=== PATIENT | female | born 1935 | race African-American/Black ===

== ENCOUNTER 2017-08-07 20:50 | Inpatient (IN) | payer MEDICARE, BC ==
[~2017-08-07] VITALS: Ht 167.6 cm; Wt 82.4 kg
[2017-08-07 20:50] VITALS: BP 107/62
[~2017-08-07 20:50] MED LIST: AMIODIPINE BESYLATE PO; ASPIRIN PO; CHOL100053 PO; FISH1CAP38 PO; FOLIC ACID PO; FOSI40TA2 PO; FURO40TA5 PO; ISOS60TA4 PO; LANS30CA55 PO; LEVO88TA2 PO; LUTE20TA PO; METO100T16 PO; POTA10TA11 PO; VYT1040 PO; WARF3TAB58 PO; [UNRECOGNIZED DRUG - OTHER] PO
[2017-08-07 21:45] VITALS: BP 107/62
[2017-08-07] MEDS ORDERED: DIPHENHYDRAMINE 25MG CAPSULE PO PRN (21:45)
[2017-08-07] MEDS ORDERED: MAGNESIUM/ALUMINUM HYDROXIDE/SIMETHICONE 30ML UDC PO PRN (21:45)
[2017-08-07] MEDS ORDERED: CLONIDINE 0.1MG TABLET PO PRN (21:45)
[2017-08-07] MEDS ORDERED: ONDANSETRON HCL 4MG TABLET PO PRN (21:45)
[2017-08-07] MEDS ORDERED: LACTULOSE 20G/30ML UDC PO PRN (21:45)
[2017-08-07] MEDS: SODIUM CHLORIDE 0.9% INJ 3ML FLUSH IVF SCH (23:01)
[2017-08-08] MEDS: SODIUM CHLORIDE 0.9% INJ 3ML FLUSH IVF SCH ×3 (06:37→22:14)
[2017-08-08] MEDS: LEVOTHYROXINE SODIUM 137MCG TABLET PO SCH (06:37)
[2017-08-08 07:16] LABS: BASOPHILS % 1.8 % (0.0-2.0); EOSINOPHILS % 1.7 % (0.0-5.0); HEMATOCRIT. 30.8 % (36.0-48.0); HEMOGLOBIN. 10.4 g/dL (12.0-16.0); LYMPHOCYTES % 34.7 % (20.0-50.0); MEAN CORPUSCULAR HEMOGLOBIN 29.2 pg (28.0-32.0); MEAN CORPUSCULAR VOLUME 86.7 fL (81.0-99.0); MEAN PLATELET VOLUME 9.7 fl (7.4-10.4); NEUTROPHILS % 50.8 % (40.0-76.0); PLATELET 217 x1000/uL (130-400); RED BLOOD CELL COUNT 3.55 mill/uL (4.2-5.4); RED CELL DISTRIBUTION WIDTH 24.2 % (11.6-14.6)
[2017-08-08 07:43] LABS: CHLORIDE 105 mEq/L (98-107)
[2017-08-08 07:54] LABS: PREALBUMIN 17.1 mg/dL (20.0-40.0)
[2017-08-08 08:00] VITALS: BP 119/64
[2017-08-08] MEDS: CARVEDILOL 6.25 MG TABLET PO SCH ×2 (09:00→21:00)
[2017-08-08] MEDS: ASPIRIN 81MG EC TABLET PO SCH (09:48)
[2017-08-08] MEDS: FERROUS SULFATE 325MG TABLET PO SCH ×2 (09:48→16:13)
[2017-08-08] MEDS: FUROSEMIDE 40MG TABLET PO SCH (09:49)
[2017-08-08] MEDS: FAMOTIDINE 20MG TABLET PO SCH (09:49)
[2017-08-08] MEDS: AMIODARONE HCL 200 MG TABLET PO SCH (09:49)
[2017-08-08] MEDS: SPIRONOLACTONE 25MG TABLET PO SCH (09:50)
[2017-08-08] MEDS: APIXABAN 2.5 MG TABLET PO SCH ×2 (09:50→22:14)
[2017-08-08] MEDS: MULTIVITAMINS,THER W-MINERALS TABLET PO SCH (09:51)
[2017-08-08] MEDS ORDERED: POTASSIUM CHLORIDE 20MEQ TABLET SR PO NR (10:45)
[2017-08-08] MEDS: FOLIC ACID 0.4MG TABLET PO SCH (11:30)
[2017-08-08] MEDS: LACTULOSE 20G/30ML UDC PO SCH ×3 (14:00→22:14)
[2017-08-08] MEDS: DOCUSATE SODIUM 100MG CAPSULE PO SCH (16:13)
[2017-08-08 20:00] VITALS: BP 107/64
[2017-08-08] MEDS: POLYETHYLENE GLYCOL 3350 (17GM) 1 DOSE PACK PO SCH (22:14)
[2017-08-09 04:53] LABS: CLARITY URINE CLEAR (CLEAR); COLOR URINE YELLOW (YELLOW); KETONES URINE NEGATIVE (NEGATIVE); LEUKOCYTE ESTERASE URINE TRACE (NEGATIVE); NITRITE URINE NEGATIVE (NEGATIVE); OCCULT BLOOD URINE 2+ (NEGATIVE); PROTEIN URINE NEGATIVE (NEGATIVE); SPECIFIC GRAVITY URINE 1.015 (1.005-1.030); UROBILINOGEN URINE 0.2 E.U./dL (0.2-1.0)
[2017-08-09] MEDS: SODIUM CHLORIDE 0.9% INJ 3ML FLUSH IVF SCH ×3 (06:12→21:18)
[2017-08-09] MEDS: LEVOTHYROXINE SODIUM 137MCG TABLET PO SCH (06:12)
[2017-08-09 07:28] LABS: AMMONIA 114 uMol/L (<32)
[2017-08-09 08:13] VITALS: BP 111/60
[2017-08-09] MEDS: FERROUS SULFATE 325MG TABLET PO SCH ×2 (08:56→17:06)
[2017-08-09] MEDS: ERGOCALCIFEROL 50000UNITS CAPSULE PO SCH (08:57)
[2017-08-09] MEDS: FOLIC ACID 0.4MG TABLET PO SCH (08:57)
[2017-08-09] MEDS: ASPIRIN 81MG EC TABLET PO SCH (08:57)
[2017-08-09] MEDS: DOCUSATE SODIUM 100MG CAPSULE PO SCH ×2 (08:57→17:06)
[2017-08-09] MEDS: AMIODARONE HCL 200 MG TABLET PO SCH (08:57)
[2017-08-09] MEDS: SPIRONOLACTONE 25MG TABLET PO SCH (08:57)
[2017-08-09] MEDS: MULTIVITAMINS,THER W-MINERALS TABLET PO SCH (08:57)
[2017-08-09] MEDS: FAMOTIDINE 20MG TABLET PO SCH (08:57)
[2017-08-09] MEDS: APIXABAN 2.5 MG TABLET PO SCH ×2 (08:57→21:18)
[2017-08-09] MEDS: CARVEDILOL 6.25 MG TABLET PO SCH ×2 (09:00→21:17)
[2017-08-09 12:33] LABS: PHOSPHORUS 2.4 mg/dL (2.5-4.9)
[2017-08-09] MEDS ORDERED: POTASSIUM-SODIUM PHOSPHATE POWDER PACKET PO NR (14:00)
[2017-08-09 15:16] LABS: HEPATITIS B SURFACE ANTIGEN NEGATIVE
[2017-08-09] MEDS: LACTULOSE 20G/30ML UDC PO SCH ×2 (15:32→21:18)
[2017-08-09 15:44] LABS: HEPATITIS B CORE AB IGM NEGATIVE
[2017-08-09 15:45] LABS: HEPATITIS A AB IGM NEGATIVE (NEGATIVE)
[2017-08-09] MEDS: RIFAXIMIN 550 MG TABLET PO SCH ×2 (16:59→21:17)
[2017-08-09 20:00] VITALS: BP 120/63
[2017-08-09] MEDS: POLYETHYLENE GLYCOL 3350 (17GM) 1 DOSE PACK PO SCH (21:17)
[2017-08-10] MEDS: LACTULOSE 20G/30ML UDC PO SCH ×3 (05:51→22:55)
[2017-08-10] MEDS: LEVOTHYROXINE SODIUM 137MCG TABLET PO SCH (05:52)
[2017-08-10] MEDS: SODIUM CHLORIDE 0.9% INJ 3ML FLUSH IVF SCH (06:00)
[2017-08-10 06:39] LABS: AMMONIA 55 uMol/L (<32); INR 1.3; PARTIAL THROMBOPLASTIN TIME 35.5 sec (23.4-31.0); PROTHROMBIN TIME 13.7 sec (9.4-11.6)
[2017-08-10 06:50] LABS: BASOPHILS % 1.8 % (0.0-2.0); EOSINOPHILS % 1.2 % (0.0-5.0); HEMOGLOBIN. 10.2 g/dL (12.0-16.0); LYMPHOCYTES % 32.2 % (20.0-50.0); MEAN CORPUSCULAR HEMOGLOBIN 28.5 pg (28.0-32.0); MEAN CORPUSCULAR VOLUME 86.6 fL (81.0-99.0); MEAN PLATELET VOLUME 9.6 fl (7.4-10.4); MONOCYTES % 9.4 % (2.0-8.0); NEUTROPHILS % 55.4 % (40.0-76.0); PLATELET 236 x1000/uL (130-400); RED BLOOD CELL COUNT 3.59 mill/uL (4.2-5.4); RED CELL DISTRIBUTION WIDTH 24.4 % (11.6-14.6)
[2017-08-10 06:51] LABS: CHLORIDE 108 mEq/L (98-107)
[2017-08-10 06:55] LABS: GAMMA GLUTAMYL TRANSPEPTIDASE 231 IU/L (7-32)
[2017-08-10 06:57] LABS: LDL CHOLESTEROL 55 mg/dL (5-100); PHOSPHORUS 2.4 mg/dL (2.5-4.9)
[2017-08-10 07:00] LABS: CREATINE KINASE 47 IU/L (26-192); HDL CHOLESTEROL 43 mg/dL (40-59)
[2017-08-10 07:07] LABS: TOTAL IRON BINDING CAPACITY 325 ug/dL (250-450)
[2017-08-10 07:26] LABS: VITAMIN B12 SERUM 1449 pg/mL (211-911)
[2017-08-10 07:30] LABS: FOLIC ACID (FOLATE) SERUM > 20.00 ng/mL (>5.38)
[2017-08-10 08:25] VITALS: BP 101/58
[2017-08-10] MEDS: CARVEDILOL 6.25 MG TABLET PO SCH ×2 (09:00→21:00)
[2017-08-10] MEDS: APIXABAN 2.5 MG TABLET PO SCH ×2 (09:19→22:55)
[2017-08-10] MEDS: MULTIVITAMINS,THER W-MINERALS TABLET PO SCH (09:19)
[2017-08-10] MEDS: ASPIRIN 81MG EC TABLET PO SCH (09:19)
[2017-08-10] MEDS: FAMOTIDINE 20MG TABLET PO SCH (09:19)
[2017-08-10] MEDS: FOLIC ACID 0.4MG TABLET PO SCH (09:19)
[2017-08-10] MEDS: DOCUSATE SODIUM 100MG CAPSULE PO SCH ×2 (09:19→17:20)
[2017-08-10] MEDS: FUROSEMIDE 40MG TABLET PO SCH (09:19)
[2017-08-10] MEDS: FERROUS SULFATE 325MG TABLET PO SCH ×2 (09:19→17:20)
[2017-08-10] MEDS: RIFAXIMIN 550 MG TABLET PO SCH ×2 (09:19→22:55)
[2017-08-10] MEDS: AMIODARONE HCL 200 MG TABLET PO SCH (09:19)
[2017-08-10] MEDS: SPIRONOLACTONE 25MG TABLET PO SCH (09:20)
[2017-08-10 11:41] LABS: FERRITIN 86 ng/mL (10-291)
[2017-08-10] MEDS ORDERED: POTASSIUM CHLORIDE 20MEQ TABLET SR PO SCH (12:00)
[2017-08-10 20:00] VITALS: BP 108/60
[2017-08-10] MEDS: POLYETHYLENE GLYCOL 3350 (17GM) 1 DOSE PACK PO SCH (22:55)
[2017-08-11] MEDS: ACETAMINOPHEN 325MG TABLET PO PRN (02:58)
[2017-08-11] MEDS: LACTULOSE 20G/30ML UDC PO SCH ×3 (05:38→22:27)
[2017-08-11] MEDS: LEVOTHYROXINE SODIUM 137MCG TABLET PO SCH (05:38)
[2017-08-11 07:32] LABS: T4 FREE 1.41 ng/dL (0.76-1.46)
[2017-08-11 07:34] LABS: AMMONIA 51 uMol/L (<32)
[2017-08-11 08:00] VITALS: BP 104/60
[2017-08-11] MEDS: RIFAXIMIN 550 MG TABLET PO SCH ×2 (08:59→22:22)
[2017-08-11] MEDS: DOCUSATE SODIUM 100MG CAPSULE PO SCH ×2 (08:59→17:34)
[2017-08-11] MEDS: APIXABAN 2.5 MG TABLET PO SCH ×2 (09:00→22:24)
[2017-08-11] MEDS: CARVEDILOL 6.25 MG TABLET PO SCH ×2 (09:00→21:00)
[2017-08-11] MEDS: FERROUS SULFATE 325MG TABLET PO SCH ×2 (09:00→17:34)
[2017-08-11] MEDS: FAMOTIDINE 20MG TABLET PO SCH (09:00)
[2017-08-11] MEDS: AMIODARONE HCL 200 MG TABLET PO SCH (09:00)
[2017-08-11] MEDS: ASPIRIN 81MG EC TABLET PO SCH (09:00)
[2017-08-11] MEDS: FOLIC ACID 0.4MG TABLET PO SCH (09:01)
[2017-08-11] MEDS: MULTIVITAMINS,THER W-MINERALS TABLET PO SCH (09:01)
[2017-08-11] MEDS: SPIRONOLACTONE 25MG TABLET PO SCH (09:01)
[2017-08-11 20:00] VITALS: BP 103/54
[2017-08-11] MEDS: POLYETHYLENE GLYCOL 3350 (17GM) 1 DOSE PACK PO SCH (22:27)
[2017-08-12] MEDS: LACTULOSE 20G/30ML UDC PO SCH ×3 (06:13→21:32)
[2017-08-12] MEDS: LEVOTHYROXINE SODIUM 137MCG TABLET PO SCH (06:25)
[2017-08-12 06:37] LABS: AMMONIA 48 uMol/L (<32)
[2017-08-12 08:00] VITALS: BP 104/65
[2017-08-12] MEDS: CARVEDILOL 6.25 MG TABLET PO SCH ×2 (09:00→21:33)
[2017-08-12] MEDS: RIFAXIMIN 550 MG TABLET PO SCH ×2 (09:49→21:32)
[2017-08-12] MEDS: FERROUS SULFATE 325MG TABLET PO SCH ×2 (09:49→18:33)
[2017-08-12] MEDS: DOCUSATE SODIUM 100MG CAPSULE PO SCH (09:49)
[2017-08-12] MEDS: ASPIRIN 81MG EC TABLET PO SCH (09:50)
[2017-08-12] MEDS: AMIODARONE HCL 200 MG TABLET PO SCH (09:50)
[2017-08-12] MEDS: FUROSEMIDE 40MG TABLET PO SCH (09:50)
[2017-08-12] MEDS: FOLIC ACID 0.4MG TABLET PO SCH (09:50)
[2017-08-12] MEDS: APIXABAN 2.5 MG TABLET PO SCH ×2 (09:50→21:32)
[2017-08-12] MEDS: MULTIVITAMINS,THER W-MINERALS TABLET PO SCH (09:50)
[2017-08-12] MEDS: FAMOTIDINE 20MG TABLET PO SCH (09:50)
[2017-08-12] MEDS: SPIRONOLACTONE 25MG TABLET PO SCH (09:59)
[2017-08-12 12:21] LABS: HEMATOCRIT 31.2 % (36.0-48.0); HEMOGLOBIN 10.4 g/dL (12.0-16.0)
[2017-08-12] MEDS ORDERED: MAGNESIUM HYDROXIDE 400MG/5ML 30ML UDC PO PRN (18:30)
[2017-08-12] MEDS ORDERED: BISACODYL 10MG SUPP PR SCH (18:30)
[2017-08-12] MEDS: ACETAMINOPHEN 325MG TABLET PO PRN (18:32)
[2017-08-12 20:00] VITALS: BP 109/73
[2017-08-12] MEDS: POLYETHYLENE GLYCOL 3350 (17GM) 1 DOSE PACK PO SCH (21:32)
[2017-08-13] MEDS: LACTULOSE 20G/30ML UDC PO SCH ×2 (06:14→20:02)
[2017-08-13] MEDS: LEVOTHYROXINE SODIUM 137MCG TABLET PO SCH (06:14)
[2017-08-13 06:28] LABS: BASOPHILS % 1.1 % (0.0-2.0); EOSINOPHILS % 1.7 % (0.0-5.0); HEMATOCRIT. 30.9 % (36.0-48.0); HEMOGLOBIN. 10.3 g/dL (12.0-16.0); LYMPHOCYTES % 41.9 % (20.0-50.0); MEAN CORPUSCULAR HEMOGLOBIN 29.3 pg (28.0-32.0); MEAN CORPUSCULAR VOLUME 87.7 fL (81.0-99.0); MEAN PLATELET VOLUME 9.7 fl (7.4-10.4); NEUTROPHILS % 44.3 % (40.0-76.0); PLATELET 246 x1000/uL (130-400); RED BLOOD CELL COUNT 3.52 mill/uL (4.2-5.4); RED CELL DISTRIBUTION WIDTH 25.4 % (11.6-14.6)
[2017-08-13 07:09] LABS: CHLORIDE 106 mEq/L (98-107)
[2017-08-13 07:32] LABS: AMMONIA 64 uMol/L (<32)
[2017-08-13 08:20] VITALS: BP 107/67
[2017-08-13] MEDS: CARVEDILOL 6.25 MG TABLET PO SCH ×2 (09:00→21:55)
[2017-08-13] MEDS: FERROUS SULFATE 325MG TABLET PO SCH ×2 (10:13→20:01)
[2017-08-13] MEDS: SPIRONOLACTONE 25MG TABLET PO SCH (10:13)
[2017-08-13] MEDS: DOCUSATE SODIUM 100MG CAPSULE PO SCH ×2 (10:14→20:02)
[2017-08-13] MEDS: FAMOTIDINE 20MG TABLET PO SCH (10:14)
[2017-08-13] MEDS: AMIODARONE HCL 200 MG TABLET PO SCH (10:14)
[2017-08-13] MEDS: ASPIRIN 81MG EC TABLET PO SCH (10:14)
[2017-08-13] MEDS: RIFAXIMIN 550 MG TABLET PO SCH ×2 (10:15→21:55)
[2017-08-13] MEDS: FOLIC ACID 0.4MG TABLET PO SCH (10:15)
[2017-08-13] MEDS: APIXABAN 2.5 MG TABLET PO SCH ×2 (10:15→21:55)
[2017-08-13] MEDS: MULTIVITAMINS,THER W-MINERALS TABLET PO SCH (10:16)
[2017-08-13] MEDS ORDERED: LACTULOSE 20G/30ML UDC PO SCH ×2 (11:45→12:00)
[2017-08-13 20:00] VITALS: BP 135/84
[2017-08-13] MEDS: POLYETHYLENE GLYCOL 3350 (17GM) 1 DOSE PACK PO SCH (21:56)
[2017-08-14] MEDS: LEVOTHYROXINE SODIUM 137MCG TABLET PO SCH (06:03)
[2017-08-14] MEDS: MAGNESIUM/ALUMINUM HYDROXIDE/SIMETHICONE 30ML UDC PO PRN (06:39)
[2017-08-14 06:43] LABS: AMMONIA 47 uMol/L (<32)
[2017-08-14 08:00] VITALS: BP 108/67
[2017-08-14] MEDS: FERROUS SULFATE 325MG TABLET PO SCH ×2 (09:32→16:23)
[2017-08-14] MEDS: RIFAXIMIN 550 MG TABLET PO SCH ×2 (09:32→22:05)
[2017-08-14] MEDS: MULTIVITAMINS,THER W-MINERALS TABLET PO SCH (09:32)
[2017-08-14] MEDS: FAMOTIDINE 20MG TABLET PO SCH (09:33)
[2017-08-14] MEDS: FUROSEMIDE 40MG TABLET PO SCH (09:33)
[2017-08-14] MEDS: FOLIC ACID 0.4MG TABLET PO SCH (09:33)
[2017-08-14] MEDS: SPIRONOLACTONE 25MG TABLET PO SCH (09:34)
[2017-08-14] MEDS: ASPIRIN 81MG EC TABLET PO SCH (09:34)
[2017-08-14] MEDS: CARVEDILOL 6.25 MG TABLET PO SCH ×2 (09:37→22:06)
[2017-08-14] MEDS: APIXABAN 2.5 MG TABLET PO SCH ×2 (09:37→22:06)
[2017-08-14] MEDS: AMIODARONE HCL 200 MG TABLET PO SCH (09:37)
[2017-08-14] MEDS: DOCUSATE SODIUM 100MG CAPSULE PO SCH ×2 (09:39→16:23)
[2017-08-14] MEDS: LACTULOSE 20G/30ML UDC PO SCH ×3 (09:40→16:23)
[2017-08-14] MEDS ORDERED: BISACODYL 10MG SUPP PR NR (17:00)
[2017-08-14 20:00] VITALS: BP 122/62
[2017-08-14] MEDS: POLYETHYLENE GLYCOL 3350 (17GM) 1 DOSE PACK PO SCH (22:06)
[2017-08-15] MEDS: MAGNESIUM/ALUMINUM HYDROXIDE/SIMETHICONE 30ML UDC PO PRN (00:30)
[2017-08-15 06:38] LABS: AMMONIA 34 uMol/L (<32)
[2017-08-15] MEDS: LEVOTHYROXINE SODIUM 137MCG TABLET PO SCH (06:49)
[2017-08-15 08:00] VITALS: BP 120/55
[2017-08-15 08:20] LABS: 25-HYDROXY VITAMIN D3 5.8 ng/mL (.)
[2017-08-15] MEDS: RIFAXIMIN 550 MG TABLET PO SCH ×2 (09:14→21:59)
[2017-08-15] MEDS: FERROUS SULFATE 325MG TABLET PO SCH ×2 (09:14→17:12)
[2017-08-15] MEDS: FUROSEMIDE 40MG TABLET PO SCH (09:14)
[2017-08-15] MEDS: FOLIC ACID 0.4MG TABLET PO SCH (09:14)
[2017-08-15] MEDS: ASPIRIN 81MG EC TABLET PO SCH (09:14)
[2017-08-15] MEDS: MULTIVITAMINS,THER W-MINERALS TABLET PO SCH (09:14)
[2017-08-15] MEDS: APIXABAN 2.5 MG TABLET PO SCH ×2 (09:14→21:59)
[2017-08-15] MEDS: DOCUSATE SODIUM 100MG CAPSULE PO SCH ×2 (09:14→17:12)
[2017-08-15] MEDS: FAMOTIDINE 20MG TABLET PO SCH (09:14)
[2017-08-15] MEDS: SPIRONOLACTONE 25MG TABLET PO SCH (09:15)
[2017-08-15] MEDS: LACTULOSE 20G/30ML UDC PO SCH ×3 (09:15→17:12)
[2017-08-15] MEDS: AMIODARONE HCL 200 MG TABLET PO SCH (09:15)
[2017-08-15] MEDS: CARVEDILOL 6.25 MG TABLET PO SCH ×2 (09:16→21:00)
[2017-08-15 20:00] VITALS: BP 115/67
[2017-08-15 21:27] LABS: CLARITY URINE CLEAR (CLEAR); COLOR URINE DARK YELLOW (YELLOW); KETONES URINE TRACE (NEGATIVE); LEUKOCYTE ESTERASE URINE TRACE (NEGATIVE); NITRITE URINE NEGATIVE (NEGATIVE); OCCULT BLOOD URINE NEGATIVE (NEGATIVE); PROTEIN URINE TRACE (NEGATIVE); SPECIFIC GRAVITY URINE 1.017 (1.005-1.030); UROBILINOGEN URINE 0.2 E.U./dL (0.2-1.0)
[2017-08-15] MEDS: POLYETHYLENE GLYCOL 3350 (17GM) 1 DOSE PACK PO SCH (21:59)
[2017-08-16] MEDS: LEVOTHYROXINE SODIUM 137MCG TABLET PO SCH (05:42)
[2017-08-16 08:00] VITALS: BP 120/68
[2017-08-16] MEDS: LACTULOSE 20G/30ML UDC PO SCH ×3 (08:48→17:23)
[2017-08-16] MEDS: APIXABAN 2.5 MG TABLET PO SCH ×2 (08:49→22:21)
[2017-08-16] MEDS: CARVEDILOL 6.25 MG TABLET PO SCH ×2 (08:49→21:00)
[2017-08-16] MEDS: ERGOCALCIFEROL 50000UNITS CAPSULE PO SCH (08:49)
[2017-08-16] MEDS: RIFAXIMIN 550 MG TABLET PO SCH ×2 (08:50→22:21)
[2017-08-16] MEDS: AMIODARONE HCL 200 MG TABLET PO SCH (08:50)
[2017-08-16] MEDS: FAMOTIDINE 20MG TABLET PO SCH (08:51)
[2017-08-16] MEDS: SPIRONOLACTONE 25MG TABLET PO SCH (08:51)
[2017-08-16] MEDS: FUROSEMIDE 40MG TABLET PO SCH (08:51)
[2017-08-16] MEDS: FERROUS SULFATE 325MG TABLET PO SCH ×2 (08:52→17:23)
[2017-08-16] MEDS: ASPIRIN 81MG EC TABLET PO SCH (08:52)
[2017-08-16] MEDS: DOCUSATE SODIUM 100MG CAPSULE PO SCH ×2 (08:52→17:23)
[2017-08-16] MEDS: FOLIC ACID 0.4MG TABLET PO SCH (08:52)
[2017-08-16] MEDS: MULTIVITAMINS,THER W-MINERALS TABLET PO SCH (08:52)
[2017-08-16 12:42] LABS: AMMONIA 37 uMol/L (<32)
[2017-08-16] MEDS: SULFAMETHOXAZOLE/TRIMETHOPRIM 800/160MG TABLET PO SCH (17:23)
[2017-08-16 20:09] VITALS: BP 104/56
[2017-08-16] MEDS: POLYETHYLENE GLYCOL 3350 (17GM) 1 DOSE PACK PO SCH (21:00)
[2017-08-17] MEDS: LEVOTHYROXINE SODIUM 137MCG TABLET PO SCH (07:09)
[2017-08-17 07:52] LABS: BASOPHILS % 1.3 % (0.0-2.0); EOSINOPHILS % 2.6 % (0.0-5.0); HEMATOCRIT. 30.3 % (36.0-48.0); HEMOGLOBIN. 10.1 g/dL (12.0-16.0); LYMPHOCYTES % 35.4 % (20.0-50.0); MEAN CORPUSCULAR HEMOGLOBIN 29.3 pg (28.0-32.0); MEAN CORPUSCULAR VOLUME 88.1 fL (81.0-99.0); MEAN PLATELET VOLUME 10.9 fl (7.4-10.4); MONOCYTES % 9.6 % (2.0-8.0); NEUTROPHILS % 51.1 % (40.0-76.0); PLATELET 262 x1000/uL (130-400); RED BLOOD CELL COUNT 3.44 mill/uL (4.2-5.4); RED CELL DISTRIBUTION WIDTH 24.7 % (11.6-14.6)
[2017-08-17 07:54] VITALS: BP 117/60
[2017-08-17 08:20] LABS: CHLORIDE 106 mEq/L (98-107)
[2017-08-17] MEDS: FOLIC ACID 0.4MG TABLET PO SCH (08:31)
[2017-08-17] MEDS: APIXABAN 2.5 MG TABLET PO SCH ×2 (08:32→22:16)
[2017-08-17] MEDS: SULFAMETHOXAZOLE/TRIMETHOPRIM 800/160MG TABLET PO SCH (08:32)
[2017-08-17] MEDS: FUROSEMIDE 40MG TABLET PO SCH (08:32)
[2017-08-17] MEDS: FERROUS SULFATE 325MG TABLET PO SCH ×2 (08:32→16:55)
[2017-08-17] MEDS: MULTIVITAMINS,THER W-MINERALS TABLET PO SCH (08:32)
[2017-08-17] MEDS: RIFAXIMIN 550 MG TABLET PO SCH ×2 (08:32→22:16)
[2017-08-17] MEDS: FAMOTIDINE 20MG TABLET PO SCH (08:32)
[2017-08-17] MEDS: LACTULOSE 20G/30ML UDC PO SCH ×3 (08:33→16:55)
[2017-08-17] MEDS: SPIRONOLACTONE 25MG TABLET PO SCH (08:34)
[2017-08-17] MEDS: CARVEDILOL 6.25 MG TABLET PO SCH ×2 (08:34→22:17)
[2017-08-17] MEDS: DOCUSATE SODIUM 100MG CAPSULE PO SCH ×2 (08:35→16:55)
[2017-08-17] MEDS: AMIODARONE HCL 200 MG TABLET PO SCH (08:35)
[2017-08-17] MEDS: ASPIRIN 81MG EC TABLET PO SCH (08:41)
[2017-08-17] MEDS: MAGNESIUM/ALUMINUM HYDROXIDE/SIMETHICONE 30ML UDC PO PRN (16:55)
[2017-08-17 18:14] LABS: PLATELET ESTIMATE NORMAL
[2017-08-17 20:00] VITALS: BP 104/62
[2017-08-17] MEDS: POLYETHYLENE GLYCOL 3350 (17GM) 1 DOSE PACK PO SCH (21:00)
[2017-08-18] MEDS: LEVOTHYROXINE SODIUM 137MCG TABLET PO SCH (06:46)
[2017-08-18 07:10] LABS: PHOSPHORUS 2.4 mg/dL (2.5-4.9)
[2017-08-18] MEDS: CARVEDILOL 6.25 MG TABLET PO SCH ×2 (09:00→22:26)
[2017-08-18 09:03] VITALS: BP 107/61
[2017-08-18] MEDS: DOCUSATE SODIUM 100MG CAPSULE PO SCH ×2 (09:57→18:18)
[2017-08-18] MEDS: FAMOTIDINE 20MG TABLET PO SCH (09:57)
[2017-08-18] MEDS: FERROUS SULFATE 325MG TABLET PO SCH ×2 (09:57→18:18)
[2017-08-18] MEDS: RIFAXIMIN 550 MG TABLET PO SCH ×2 (09:57→22:26)
[2017-08-18] MEDS: MULTIVITAMINS,THER W-MINERALS TABLET PO SCH (09:57)
[2017-08-18] MEDS: LACTULOSE 20G/30ML UDC PO SCH ×3 (09:57→17:00)
[2017-08-18] MEDS: AMIODARONE HCL 200 MG TABLET PO SCH (09:58)
[2017-08-18] MEDS: ASPIRIN 81MG EC TABLET PO SCH (09:58)
[2017-08-18] MEDS: FOLIC ACID 0.4MG TABLET PO SCH (09:58)
[2017-08-18] MEDS: FUROSEMIDE 40MG TABLET PO SCH (09:58)
[2017-08-18] MEDS: APIXABAN 2.5 MG TABLET PO SCH ×2 (09:58→22:26)
[2017-08-18] MEDS: SPIRONOLACTONE 25MG TABLET PO SCH (09:59)
[2017-08-18 10:25] LABS: AMMONIA 34 uMol/L (<32)
[2017-08-18] MEDS: POTASSIUM-SODIUM PHOSPHATE POWDER PACKET PO SCH ×2 (11:30→18:18)
[2017-08-18] MEDS: CEPHALEXIN 250MG CAPSULE PO SCH ×2 (14:00→22:27)
[2017-08-18] MEDS: ACETAMINOPHEN 325MG TABLET PO PRN (18:22)
[2017-08-18 20:10] VITALS: BP 111/59
[2017-08-18] MEDS: POLYETHYLENE GLYCOL 3350 (17GM) 1 DOSE PACK PO SCH (22:25)
[2017-08-19] MEDS: LEVOTHYROXINE SODIUM 137MCG TABLET PO SCH (06:38)
[2017-08-19] MEDS: CEPHALEXIN 250MG CAPSULE PO SCH ×2 (06:39→13:44)
[2017-08-19 06:52] LABS: BASOPHILS % 0.9 % (0.0-2.0); EOSINOPHILS % 1.1 % (0.0-5.0); HEMATOCRIT. 30.1 % (36.0-48.0); HEMOGLOBIN. 9.9 g/dL (12.0-16.0); LYMPHOCYTES % 39.9 % (20.0-50.0); MEAN CORPUSCULAR HEMOGLOBIN 29.7 pg (28.0-32.0); MEAN PLATELET VOLUME 10.3 fl (7.4-10.4); MONOCYTES % 10.6 % (2.0-8.0); NEUTROPHILS % 47.5 % (40.0-76.0); PLATELET 212 x1000/uL (130-400); RED BLOOD CELL COUNT 3.34 mill/uL (4.2-5.4); RED CELL DISTRIBUTION WIDTH 24.4 % (11.6-14.6)
[2017-08-19 06:56] LABS: AMMONIA 47 uMol/L (<32)
[2017-08-19 07:11] LABS: CHLORIDE 104 mEq/L (98-107)
[2017-08-19 07:43] LABS: PHOSPHORUS 2.8 mg/dL (2.5-4.9)
[2017-08-19 08:00] VITALS: BP 86/50
[2017-08-19] MEDS: ASPIRIN 81MG EC TABLET PO SCH (08:45)
[2017-08-19] MEDS: MULTIVITAMINS,THER W-MINERALS TABLET PO SCH (08:45)
[2017-08-19] MEDS: APIXABAN 2.5 MG TABLET PO SCH (08:45)
[2017-08-19] MEDS: FOLIC ACID 0.4MG TABLET PO SCH (08:45)
[2017-08-19] MEDS: RIFAXIMIN 550 MG TABLET PO SCH (08:45)
[2017-08-19] MEDS: DOCUSATE SODIUM 100MG CAPSULE PO SCH (08:45)
[2017-08-19] MEDS: FERROUS SULFATE 325MG TABLET PO SCH (08:45)
[2017-08-19] MEDS: FUROSEMIDE 40MG TABLET PO SCH (08:45)
[2017-08-19] MEDS: POTASSIUM-SODIUM PHOSPHATE POWDER PACKET PO SCH (08:45)
[2017-08-19] MEDS: LACTULOSE 20G/30ML UDC PO SCH ×2 (08:46→11:51)
[2017-08-19] MEDS: CARVEDILOL 6.25 MG TABLET PO SCH (08:47)
[2017-08-19] MEDS: AMIODARONE HCL 200 MG TABLET PO SCH (08:47)
[2017-08-19] MEDS: SPIRONOLACTONE 25MG TABLET PO SCH (08:48)
[2017-08-19] MEDS: FAMOTIDINE 20MG TABLET PO SCH (08:57)
[2017-08-19 09:05] VITALS: BP 103/58
[2017-08-19 11:03] VITALS: BP 103/58
== END 2017-08-19 13:50 | disposition home health service (06) | DRG 91 ==
PROVIDERS: ADMIT Physical Medicine & Rehabilitation Spinal Cord Injury Medicine; ATTEND Internal Medicine
DX: G92 Toxic encephalopathy (principal); I50.23 Acute on chronic systolic (congestive) heart failure; N17.9 Acute kidney failure, unspecified; E46 Unspecified protein-calorie malnutrition; E72.20 Disorder of urea cycle metabolism, unspecified; I27.20 Pulmonary hypertension, unspecified; E83.39 Other disorders of phosphorus metabolism; I42.9 Cardiomyopathy, unspecified; I48.91 Unspecified atrial fibrillation; N39.0 Urinary tract infection, site not specified; I13.0 Hypertensive heart and chronic kidney disease with heart failure and stage 1 through stage 4 chronic kidney disease, or unspecified chronic kidney disease; R18.8 Other ascites; R13.10 Dysphagia, unspecified; D32.0 Benign neoplasm of cerebral meninges; E03.9 Hypothyroidism, unspecified; E78.00 Pure hypercholesterolemia, unspecified; D64.9 Anemia, unspecified; F03.90 Unspecified dementia, unspecified severity, without behavioral disturbance, psychotic disturbance, mood disturbance, and anxiety; B96.20 Unspecified Escherichia coli [E. coli] as the cause of diseases classified elsewhere; R26.9 Unspecified abnormalities of gait and mobility; R53.81 Other malaise; D72.819 Decreased white blood cell count, unspecified; R74.0 Nonspecific elevation of levels of transaminase and lactic acid dehydrogenase [LDH]; M79.609 Pain in unspecified limb; R20.0 Anesthesia of skin; Z68.29 Body mass index [BMI] 29.0-29.9, adult; N18.9 Chronic kidney disease, unspecified; R33.9 Retention of urine, unspecified; K76.0 Fatty (change of) liver, not elsewhere classified; E55.9 Vitamin D deficiency, unspecified; E78.5 Hyperlipidemia, unspecified; E66.9 Obesity, unspecified; F39 Unspecified mood [affective] disorder; I89.0 Lymphedema, not elsewhere classified; K59.00 Constipation, unspecified; F06.31 Mood disorder due to known physiological condition with depressive features; L60.0 Ingrowing nail; L60.3 Nail dystrophy; N28.1 Cyst of kidney, acquired; Z87.891 Personal history of nicotine dependence; Z95.810 Presence of automatic (implantable) cardiac defibrillator; Z87.440 Personal history of urinary (tract) infections; Z90.49 Acquired absence of other specified parts of digestive tract; Z90.710 Acquired absence of both cervix and uterus; Z95.1 Presence of aortocoronary bypass graft; Z82.49 Family history of ischemic heart disease and other diseases of the circulatory system
CPT/HCPCS: 36415; 74018; 76705; 80048; 80051; 80053; 80061; 80069; 80076; 81003; 82140; 82248; 82270; 82306; 82550; 82607; 82728; 82746; 82977; 83036; 83540; 83550; 83735; 84100; 84134; 84439; 84443; 84481; 84630; 85014; 85018; 85025; 85610; 85730; 86705; 86709; 86803; 87077; 87086; 87186; 87340; 92523; 92610; 93970; 97110; 97116; 97162; 97167; 97530; 97535; G0515

== ENCOUNTER 2017-11-14 18:39 | Inpatient (IN) | payer MEDICARE, BC ==
[~2017-11-14] VITALS: Ht 165.1 cm; Wt 66.8 kg
[~2017-11-14 18:39] MED LIST changes: -AMIODIPINE BESYLATE PO; -ASPIRIN PO; -FOLIC ACID PO; -FOSI40TA2 PO; -ISOS60TA4 PO; -LANS30CA55 PO; -LUTE20TA PO; -METO100T16 PO; -POTA10TA11 PO; -WARF3TAB58 PO; -[UNRECOGNIZED DRUG - OTHER] PO
[2017-11-14] MEDS ORDERED: SODIUM CHLORIDE 0.9% 1,000 ML IV ONE (19:58)
[2017-11-14 20:44] LABS: BASOPHILS % 1.7 % (0.0-2.0); EOSINOPHILS % 0.2 % (0.0-5.0); HEMATOCRIT. 28.4 % (36.0-48.0); HEMOGLOBIN. 9.9 g/dL (12.0-16.0); LYMPHOCYTES % 36.2 % (20.0-50.0); MEAN CORPUSCULAR VOLUME 86.4 fL (81.0-99.0); MEAN PLATELET VOLUME 10.6 fl (7.4-10.4); MONOCYTES % 10.7 % (2.0-8.0); NEUTROPHILS % 51.2 % (40.0-76.0); PLATELET 338 x1000/uL (130-400); RED BLOOD CELL COUNT 3.29 mill/uL (4.2-5.4)
[2017-11-14 20:47] LABS: CHLORIDE 98 mEq/L (98-107)
[2017-11-14 20:52] LABS: INR 1.3; PARTIAL THROMBOPLASTIN TIME 29.4 sec (23.4-31.0); PROTHROMBIN TIME 12.7 sec (9.1-11.1)
[2017-11-14] MEDS ORDERED: CLONIDINE 0.1MG TABLET PO PRN (22:15)
[2017-11-14] MEDS ORDERED: ONDANSETRON HCL 4MG/2ML VIAL IV PRN (22:15)
[2017-11-14] MEDS ORDERED: ACETAMINOPHEN 325MG TABLET PO PRN (22:15)
[2017-11-14] MEDS ORDERED: MAGNESIUM/ALUMINUM HYDROXIDE/SIMETHICONE 30ML UDC PO PRN (22:15)
[2017-11-14] MEDS ORDERED: DIPHENHYDRAMINE 50MG/ML VIAL IV PRN (22:15)
[2017-11-14] MEDS ORDERED: GUAIFENESIN 200MG/10ML SUGAR FREE UDC PO PRN (22:15)
[2017-11-14] MEDS ORDERED: POTASSIUM CHLORIDE INJ 40 MEQ in DEXT 5% WATER 250 ML IV NR (22:15)
[2017-11-14 22:45] LABS: T4 FREE 2.24 ng/dL (0.76-1.46)
[2017-11-14] MEDS ORDERED: POTASSIUM CHLORIDE 20MEQ TABLET SR PO ONE (22:45)
[2017-11-15] MEDS ORDERED: KCL 20MEQ/100ML PREMIX 100 ML IV SCH
[2017-11-15 04:39] VITALS: BP 96/50
[2017-11-15 05:00] VITALS: BP 96/50
[2017-11-15] MEDS ORDERED: POTASSIUM CHLORIDE 20MEQ TABLET SR PO SCH (05:47)
[2017-11-15] MEDS ORDERED: MAGNESIUM SULFATE 2 GM in DEXTROSE 5% WATER 50 ML IV SCH (06:00)
[2017-11-15] MEDS: SODIUM CHLORIDE 0.9% INJ 3ML FLUSH IVF SCH ×3 (06:00→21:22)
[2017-11-15] MEDS ORDERED: ONDANSETRON 4MG ODT PO PRN (06:00)
[2017-11-15] MEDS ORDERED: MAGNESIUM SULFATE 2 GM in SODIUM CHLORIDE 0.9% 50 ML IV SCH (06:00)
[2017-11-15] MEDS ORDERED: LEVOTHYROXINE SODIUM 137MCG TABLET PO SCH (07:20)
[2017-11-15 07:44] VITALS: BP 98/51
[2017-11-15] MEDS ORDERED: ERGOCALCIFEROL 50000UNITS CAPSULE PO SCH (09:00)
[2017-11-15] MEDS: CARVEDILOL 3.125 MG TABLET PO SCH ×2 (09:00→20:59)
[2017-11-15] MEDS: FISH OIL/OMEGA-3 FATTY ACIDS 1000MG CAPSULE PO SCH (09:24)
[2017-11-15] MEDS: APIXABAN 2.5 MG TABLET PO SCH ×2 (09:25→17:49)
[2017-11-15] MEDS: AMIODARONE HCL 200 MG TABLET PO SCH (09:31)
[2017-11-15] MEDS: METOLAZONE 2.5MG TABLET PO SCH (09:34)
[2017-11-15 10:51] LABS: PHOSPHORUS 2.5 mg/dL (2.5-4.9)
[2017-11-15 11:16] VITALS: BP 94/50
[2017-11-15] MEDS: POTASSIUM CHLORIDE 20MEQ TABLET SR PO SCH ×2 (12:25→14:07)
[2017-11-15 15:31] VITALS: BP 92/50
[2017-11-15 18:16] LABS: CLARITY URINE CLOUDY (CLEAR); COLOR URINE DARK YELLOW (YELLOW); KETONES URINE NEGATIVE (NEGATIVE); LEUKOCYTE ESTERASE URINE TRACE (NEGATIVE); NITRITE URINE NEGATIVE (NEGATIVE); OCCULT BLOOD URINE 3+ (NEGATIVE); PH URINE 5.5 (4.5-8.0); PROTEIN URINE 2+ (NEGATIVE); SPECIFIC GRAVITY URINE 1.013 (1.005-1.030)
[2017-11-15 20:00] VITALS: BP 94/50
[2017-11-15] MEDS: FAMOTIDINE 20MG TABLET PO SCH (21:22)
[2017-11-16] VITALS: BP 95/48
[2017-11-16 04:00] VITALS: BP 98/51
[2017-11-16] MEDS: SODIUM CHLORIDE 0.9% INJ 3ML FLUSH IVF SCH ×3 (05:38→21:40)
[2017-11-16 08:00] VITALS: BP 95/54
[2017-11-16] MEDS: CARVEDILOL 3.125 MG TABLET PO SCH ×2 (09:00→21:00)
[2017-11-16] MEDS: FISH OIL/OMEGA-3 FATTY ACIDS 1000MG CAPSULE PO SCH (09:03)
[2017-11-16] MEDS: METOLAZONE 2.5MG TABLET PO SCH (09:03)
[2017-11-16] MEDS: APIXABAN 2.5 MG TABLET PO SCH ×2 (09:03→16:52)
[2017-11-16] MEDS: AMIODARONE HCL 200 MG TABLET PO SCH (09:03)
[2017-11-16 12:00] VITALS: BP 93/46
[2017-11-16 12:25] LABS: HEMATOCRIT 26.2 % (36.0-48.0); HEMOGLOBIN 9.1 g/dL (12.0-16.0); MEAN CORPUSCULAR HEMOGLOBIN 30.2 pg (28.0-32.0); MEAN CORPUSCULAR VOLUME 86.6 fL (81.0-99.0); PLATELET 312 x1000/uL (130-400); RED BLOOD CELL COUNT 3.02 mill/uL (4.2-5.4); RED CELL DISTRIBUTION WIDTH 19.3 % (11.6-14.6)
[2017-11-16] MEDS ORDERED: METOLAZONE 2.5MG TABLET PO NR (15:30)
[2017-11-16 16:00] VITALS: BP_SYST 93; BP_DIAS 46; BP_DIAS 53
[2017-11-16 19:24] VITALS: BP 97/55
[2017-11-16] MEDS: FAMOTIDINE 20MG TABLET PO SCH (21:40)
[2017-11-17] VITALS: BP 93/47
[2017-11-17 04:00] VITALS: BP 96/43
[2017-11-17] MEDS: SODIUM CHLORIDE 0.9% INJ 3ML FLUSH IVF SCH ×3 (05:09→21:00)
[2017-11-17 07:04] LABS: CHLORIDE 108 mEq/L (98-107)
[2017-11-17 07:12] LABS: PHOSPHORUS 2.2 mg/dL (2.5-4.9)
[2017-11-17 07:26] LABS: BASOPHILS % 0.6 % (0.0-2.0); EOSINOPHILS % 0.6 % (0.0-5.0); HEMATOCRIT. 26.3 % (36.0-48.0); HEMOGLOBIN. 9.1 g/dL (12.0-16.0); LYMPHOCYTES % 26.8 % (20.0-50.0); MEAN CORPUSCULAR HEMOGLOBIN 30.3 pg (28.0-32.0); MEAN CORPUSCULAR VOLUME 87.3 fL (81.0-99.0); MEAN PLATELET VOLUME 10.9 fl (7.4-10.4); MONOCYTES % 12.2 % (2.0-8.0); NEUTROPHILS % 59.8 % (40.0-76.0); PLATELET 309 x1000/uL (130-400); RED BLOOD CELL COUNT 3.02 mill/uL (4.2-5.4); RED CELL DISTRIBUTION WIDTH 19.7 % (11.6-14.6)
[2017-11-17 08:00] VITALS: BP 121/52
[2017-11-17] MEDS: APIXABAN 2.5 MG TABLET PO SCH ×2 (08:41→18:02)
[2017-11-17] MEDS: CARVEDILOL 3.125 MG TABLET PO SCH ×2 (08:41→20:53)
[2017-11-17] MEDS: METOLAZONE 2.5MG TABLET PO SCH (08:41)
[2017-11-17] MEDS: FISH OIL/OMEGA-3 FATTY ACIDS 1000MG CAPSULE PO SCH (08:41)
[2017-11-17] MEDS: AMIODARONE HCL 200 MG TABLET PO SCH (08:41)
[2017-11-17] MEDS ORDERED: POTASSIUM CHLORIDE 20MEQ TABLET SR PO NR (09:15)
[2017-11-17 10:53] LABS: HEPATITIS B SURFACE ANTIGEN NEGATIVE
[2017-11-17 11:20] LABS: HEPATITIS B CORE AB IGM NEGATIVE
[2017-11-17 11:22] LABS: HEPATITIS A AB IGM NEGATIVE (NEGATIVE)
[2017-11-17 12:00] VITALS: BP 103/46
[2017-11-17] MEDS ORDERED: POTASSIUM PHOS,M-BASIC-D-BASIC 15 MMOL in DEXT 5% WATER 245 ML IV NR (12:00)
[2017-11-17 12:40] LABS: TOTAL IRON BINDING CAPACITY 246 ug/dL (250-450)
[2017-11-17 12:48] LABS: FOLIC ACID (FOLATE) SERUM 14.1 ng/mL (>5.38)
[2017-11-17 16:00] VITALS: BP 82/43
[2017-11-17] MEDS: MIDODRINE HCL 5MG TABLET PO SCH (18:03)
[2017-11-17 20:05] VITALS: BP 88/44
[2017-11-17] MEDS: FAMOTIDINE 20MG TABLET PO SCH (20:54)
[2017-11-18] VITALS: BP 88/45
[2017-11-18 04:00] VITALS: BP 86/46
[2017-11-18] MEDS: SODIUM CHLORIDE 0.9% INJ 3ML FLUSH IVF SCH (05:48)
[2017-11-18 08:00] VITALS: BP 94/51
[2017-11-18] MEDS: CARVEDILOL 3.125 MG TABLET PO SCH (09:00)
[2017-11-18] MEDS: APIXABAN 2.5 MG TABLET PO SCH ×2 (10:01→17:41)
[2017-11-18] MEDS: FISH OIL/OMEGA-3 FATTY ACIDS 1000MG CAPSULE PO SCH (10:01)
[2017-11-18] MEDS: AMIODARONE HCL 200 MG TABLET PO SCH (10:02)
[2017-11-18] MEDS: MIDODRINE HCL 5MG TABLET PO SCH (10:02)
[2017-11-18] MEDS: METOLAZONE 2.5MG TABLET PO SCH (10:02)
[2017-11-18 12:00] VITALS: BP 94/49
[2017-11-18 16:00] VITALS: BP 91/44
[2017-11-18 16:05] VITALS: BP 91/44
[2017-11-18] MEDS ORDERED: MIDODRINE HCL 5MG TABLET PO SCH (17:00)
== END 2017-11-18 20:00 | DRG 291 ==
LOC: ER 18:39 → 6WST 22:35 → ENRESERV 11-15 02:56
PROVIDERS: ADMIT Internal Medicine; ATTEND Internal Medicine
DX: I13.0 Hypertensive heart and chronic kidney disease with heart failure and stage 1 through stage 4 chronic kidney disease, or unspecified chronic kidney disease (principal); I50.23 Acute on chronic systolic (congestive) heart failure; E43 Unspecified severe protein-calorie malnutrition; N17.9 Acute kidney failure, unspecified; I42.9 Cardiomyopathy, unspecified; I95.9 Hypotension, unspecified; E87.6 Hypokalemia; N18.9 Chronic kidney disease, unspecified; F03.90 Unspecified dementia, unspecified severity, without behavioral disturbance, psychotic disturbance, mood disturbance, and anxiety; E03.9 Hypothyroidism, unspecified; I34.0 Nonrheumatic mitral (valve) insufficiency; I27.22 Pulmonary hypertension due to left heart disease; E78.00 Pure hypercholesterolemia, unspecified; D63.8 Anemia in other chronic diseases classified elsewhere; R41.89 Other symptoms and signs involving cognitive functions and awareness; I48.91 Unspecified atrial fibrillation; K75.81 Nonalcoholic steatohepatitis (NASH); I25.10 Atherosclerotic heart disease of native coronary artery without angina pectoris; Z90.710 Acquired absence of both cervix and uterus; Z95.810 Presence of automatic (implantable) cardiac defibrillator; Z79.899 Other long term (current) drug therapy; Z79.01 Long term (current) use of anticoagulants; Z90.49 Acquired absence of other specified parts of digestive tract; Z95.1 Presence of aortocoronary bypass graft; Z68.24 Body mass index [BMI] 24.0-24.9, adult
CPT/HCPCS: 36415; 71045; 76700; 80048; 80053; 80076; 81003; 82607; 82728; 82746; 83540; 83550; 83735; 83880; 84100; 84439; 84443; 84484; 85025; 85027; 85610; 85730; 86705; 86709; 86803; 87086; 87340; 93005; 93306; 93970; 96365; 97162; 97166; 97530; 99285; C1893; J3475; J3480; J3490; J7030; J7050; J7060

== ENCOUNTER 2018-01-10 12:18 | Inpatient (IN) | payer MEDICARE, BC ==
[~2018-01-10] VITALS: Ht 152.4 cm; Wt 83.5 kg
[2018-01-10 13:17] LABS: BG BASE EXCESS -2.9 mmol/L (-2.0-2.0); BG CARBOXYHEMOGLOBIN 0.5 % (0.5-1.5); BG FRACTION INSPIRED OXYGEN 21; BG HCO3 ACT 18.6 mmol/L (22.0-26.0); BG METHEMOGLOBIN 0.1 % (0.0-1.5); BG OXYHEMOGLOBIN 94.4 % (94.0-97.0); BG PCO2 23.4 mmHg (35.0-45.0); BG PH 7.518 (7.350-7.450); BG PO2 76.5 mmHg (75.0-100.0); BG SAMPLE SITE RIGHT BRACHIAL; BG TOTAL HEMOGLOBIN 11.3 g/dL (12.0-18.0); BG VENT MODE ROOM AIR
[2018-01-10 14:03] LABS: BASOPHILS % 1.9 % (0.0-2.0); EOSINOPHILS % 0.1 % (0.0-5.0); LYMPHOCYTES % 7.2 % (20.0-50.0); MEAN CORPUSCULAR HEMOGLOBIN 33.2 pg (28.0-32.0); MEAN CORPUSCULAR VOLUME 102.7 fL (81.0-99.0); NEUTROPHILS % 84.8 % (40.0-76.0); PLATELET 190 x1000/uL (130-400); RED BLOOD CELL COUNT 3.31 mill/uL (4.2-5.4); RED CELL DISTRIBUTION WIDTH 23.3 % (11.6-14.6)
[2018-01-10 14:14] LABS: CHLORIDE 104 mEq/L (98-107)
[2018-01-10 14:16] LABS: PLATELET ESTIMATE NORMAL
[2018-01-10 14:17] LABS: PARTIAL THROMBOPLASTIN TIME 59.5 sec (23.4-31.0); PROTHROMBIN TIME 39.5 sec (9.1-11.1)
[2018-01-10 14:46] LABS: CLARITY URINE CLOUDY (CLEAR); COLOR URINE DARK YELLOW (YELLOW); KETONES URINE NEGATIVE (NEGATIVE); LEUKOCYTE ESTERASE URINE 1+ (NEGATIVE); NITRITE URINE NEGATIVE (NEGATIVE); OCCULT BLOOD URINE 3+ (NEGATIVE); PROTEIN URINE 1+ (NEGATIVE); SPECIFIC GRAVITY URINE 1.018 (1.005-1.030)
[2018-01-10] MEDS ORDERED: METRONIDAZOLE 500 MG PREMIX 100 ML IV ONE (16:30)
[2018-01-10] MEDS ORDERED: LEVOFLOXACIN 500MG PREMIX 100 ML IV ONE (16:30)
[2018-01-10] MEDS ORDERED: FUROSEMIDE 20MG/2ML VIAL IVP ONE (16:30)
[2018-01-10 21:34] VITALS: BP 107/56
[2018-01-10 21:35] VITALS: BP 128/47
[2018-01-10] MEDS ORDERED: ACETAMINOPHEN 325MG TABLET PO PRN (22:15)
[2018-01-10] MEDS ORDERED: ONDANSETRON HCL 4MG/2ML INJ IV PRN (22:15)
[2018-01-10] MEDS ORDERED: MAGNESIUM/ALUMINUM HYDROXIDE/SIMETHICONE 30ML UDC PO PRN (22:15)
[2018-01-10] MEDS ORDERED: CLONIDINE 0.1MG TABLET PO PRN (22:15)
[2018-01-10] MEDS: DEXT 5%/0.45% NACL 1000ML 1,000 ML IV SCH (23:50)
[2018-01-11] VITALS (7 sets, daily range): BP systolic 104–128; BP diastolic 47–65
[2018-01-11] MEDS ORDERED: DIPH25CA6 MT (04:17)
[2018-01-11] MEDS ORDERED: ONDA4TAB50 MT (04:17)
[2018-01-11] MEDS ORDERED: APIX2.5T MT (04:17)
[2018-01-11] MEDS ORDERED: METO2.5T14 MT (04:17)
[2018-01-11] MEDS ORDERED: CLON0.1T MT (04:17)
[2018-01-11] MEDS ORDERED: LEVO88TA2 MT (04:17)
[2018-01-11] MEDS ORDERED: FAMO20TA8 MT (04:17)
[2018-01-11] MEDS ORDERED: AMIO100T4 MT (04:17)
[2018-01-11] MEDS ORDERED: MIDO10TA MT (04:17)
[2018-01-11] MEDS ORDERED: LACT10SO7 MT (04:17)
[2018-01-11] MEDS ORDERED: ERGO500013 MT (04:20)
[2018-01-11] MEDS ORDERED: OMEG-95 MT (04:50)
[2018-01-11] MEDS ORDERED: FISH MT (04:50)
[2018-01-11] MEDS ORDERED: CODE10LI MT (04:56)
[2018-01-11] MEDS: SODIUM CHLORIDE 0.9% INJ 3ML FLUSH IVF SCH ×3 (06:05→21:19)
[2018-01-11 06:14] LABS: HEMOGLOBIN. 10.2 g/dL (12.0-16.0); MEAN CORPUSCULAR HEMOGLOBIN 33.1 pg (28.0-32.0); MEAN CORPUSCULAR VOLUME 100.9 fL (81.0-99.0); PLATELET 166 x1000/uL (130-400); RED BLOOD CELL COUNT 3.07 mill/uL (4.2-5.4); RED CELL DISTRIBUTION WIDTH 22.9 % (11.6-14.6)
[2018-01-11 07:03] LABS: T4 FREE 1.36 ng/dL (0.76-1.46)
[2018-01-11 07:47] LABS: PLATELET ESTIMATE NORMAL
[2018-01-11] MEDS ORDERED: KCL 10MEQ/50ML PREMIX 50 ML IV SCH (11:30)
[2018-01-11] MEDS: LEVOTHYROXINE SODIUM 100 MCG/ VIAL IV SCH ×2 (12:54→13:10)
[2018-01-11] MEDS: LACTULOSE 20G/30ML UDC PO SCH (19:04)
[2018-01-11 19:28] LABS: HEPATITIS B SURFACE ANTIGEN NEGATIVE
[2018-01-11 19:57] LABS: HEPATITIS B CORE AB IGM NEGATIVE
[2018-01-11 19:58] LABS: HEPATITIS A AB IGM NEGATIVE (NEGATIVE)
[2018-01-11] MEDS: RIFAXIMIN 550 MG TABLET PO SCH (20:16)
[2018-01-11] MEDS ORDERED: VANCOMYCIN 1 G PREMIX 200 ML IV NR (21:00)
[2018-01-11] MEDS: LORAZEPAM 2MG/ML CPJ IV PRN (21:57)
[2018-01-11 22:05] LABS: AMMONIA 56 uMol/L (<32)
[2018-01-12] VITALS: BP 115/56
[2018-01-12] MEDS: DEXT 5%/0.45% NACL 1000ML 1,000 ML IV SCH (00:30)
[2018-01-12 04:00] VITALS: BP 115/56
[2018-01-12] MEDS: SODIUM CHLORIDE 0.9% INJ 3ML FLUSH IVF SCH ×3 (05:44→21:51)
[2018-01-12 05:45] LABS: HEMATOCRIT. 28.4 % (36.0-48.0); HEMOGLOBIN. 9.6 g/dL (12.0-16.0); INR 2.3; MEAN CORPUSCULAR VOLUME 100.2 fL (81.0-99.0); MEAN PLATELET VOLUME 10.6 fl (7.4-10.4); PARTIAL THROMBOPLASTIN TIME 56.1 sec (23.4-31.0); PLATELET 139 x1000/uL (130-400); PROTHROMBIN TIME 22.7 sec (9.1-11.1); RED BLOOD CELL COUNT 2.84 mill/uL (4.2-5.4)
[2018-01-12 06:58] LABS: AMMONIA 72 uMol/L (<32)
[2018-01-12 07:58] LABS: CHLORIDE 107 mEq/L (98-107)
[2018-01-12 08:00] VITALS: BP 120/58
[2018-01-12 08:20] LABS: VITAMIN B12 SERUM > 2000.0 pg/mL (211-911)
[2018-01-12] MEDS: LACTULOSE 20G/30ML UDC PO SCH ×2 (08:52→17:21)
[2018-01-12] MEDS: RIFAXIMIN 550 MG TABLET PO SCH ×2 (08:52→21:51)
[2018-01-12] MEDS: LORAZEPAM 2MG/ML CPJ IV PRN ×2 (08:54→16:07)
[2018-01-12] MEDS ORDERED: POTASSIUM CHLORIDE 20MEQ/PACKET NG SCH (09:45)
[2018-01-12 10:38] LABS: NUCLEATED RED BLOOD CELLS 1 /100 WBC
[2018-01-12 10:40] LABS: PLATELET ESTIMATE NORMAL
[2018-01-12] MEDS ORDERED: POTASSIUM CHLORIDE 20MEQ/PACKET PO SCH (11:15)
[2018-01-12 12:00] VITALS: BP 111/59
[2018-01-12] MEDS ORDERED: VANCOMYCIN 500 MG PREMIX 100 ML IV NR (13:00)
[2018-01-12 16:00] VITALS: BP 115/63
[2018-01-12] MEDS ORDERED: POTASSIUM CHLORIDE 20MEQ TABLET SR PO NR (16:00)
[2018-01-12 20:00] VITALS: BP 108/76
[2018-01-13] VITALS: BP 116/61
[2018-01-13] MEDS: DEXT 5%/0.45% NACL 1000ML 1,000 ML IV SCH (00:33)
[2018-01-13] MEDS: LORAZEPAM 2MG/ML CPJ IV PRN ×2 (00:34→20:23)
[2018-01-13 04:00] VITALS: BP 112/54
[2018-01-13] MEDS: SODIUM CHLORIDE 0.9% INJ 3ML FLUSH IVF SCH ×3 (06:36→20:22)
[2018-01-13 07:23] LABS: BASOPHILS % 0.7 % (0.0-2.0); HEMOGLOBIN. 10.4 g/dL (12.0-16.0); LYMPHOCYTES % 11.7 % (20.0-50.0); MEAN CORPUSCULAR VOLUME 100.8 fL (81.0-99.0); MONOCYTES % 5.5 % (2.0-8.0); NEUTROPHILS % 81.1 % (40.0-76.0); PLATELET 123 x1000/uL (130-400); RED BLOOD CELL COUNT 3.07 mill/uL (4.2-5.4); RED CELL DISTRIBUTION WIDTH 23.7 % (11.6-14.6)
[2018-01-13 07:28] LABS: AMMONIA 107 uMol/L (<32)
[2018-01-13 08:00] VITALS: BP 113/52
[2018-01-13 08:08] LABS: PHOSPHORUS 2.3 mg/dL (2.5-4.9)
[2018-01-13] MEDS: LACTULOSE 20G/30ML UDC PO SCH ×4 (09:02→17:52)
[2018-01-13] MEDS: RIFAXIMIN 550 MG TABLET PO SCH ×2 (09:02→20:22)
[2018-01-13] MEDS: LEVOTHYROXINE SODIUM 100 MCG/ VIAL IV SCH (09:02)
[2018-01-13] MEDS ORDERED: VANCOMYCIN 750 MG PREMIX 150 ML IV SCH (11:00)
[2018-01-13 12:00] VITALS: BP 98/56
[2018-01-13 16:00] VITALS: BP 128/65
[2018-01-13] MEDS ORDERED: PHYTONADIONE 10MG/ML AMP SUBCUT NR (17:00)
[2018-01-13 20:00] VITALS: BP 118/87
[2018-01-14] VITALS: BP 110/68
[2018-01-14 04:00] VITALS: BP 110/60
[2018-01-14] MEDS: DEXT 5%/0.45% NACL 1000ML 1,000 ML IV SCH (04:26)
[2018-01-14] MEDS: SODIUM CHLORIDE 0.9% INJ 3ML FLUSH IVF SCH ×3 (04:26→22:21)
[2018-01-14] MEDS ORDERED: ACETAMINOPHEN 650MG/20.3ML UDC PO PRN (06:45)
[2018-01-14 08:00] VITALS: BP 106/56
[2018-01-14 09:07] LABS: INR 1.5; PARTIAL THROMBOPLASTIN TIME 48.9 sec (23.4-31.0); PROTHROMBIN TIME 15.1 sec (9.1-11.1)
[2018-01-14 09:08] LABS: BASOPHILS % 1.4 % (0.0-2.0); EOSINOPHILS % 1.1 % (0.0-5.0); HEMATOCRIT. 30.9 % (36.0-48.0); HEMOGLOBIN. 10.1 g/dL (12.0-16.0); LYMPHOCYTES % 12.6 % (20.0-50.0); MEAN CORPUSCULAR HEMOGLOBIN 33.3 pg (28.0-32.0); MEAN CORPUSCULAR VOLUME 102.1 fL (81.0-99.0); MEAN PLATELET VOLUME 11.4 fl (7.4-10.4); MONOCYTES % 6.5 % (2.0-8.0); NEUTROPHILS % 78.4 % (40.0-76.0); PLATELET 117 x1000/uL (130-400); RED BLOOD CELL COUNT 3.03 mill/uL (4.2-5.4); RED CELL DISTRIBUTION WIDTH 23.5 % (11.6-14.6)
[2018-01-14] MEDS: LACTULOSE 20G/30ML UDC PO SCH ×3 (09:11→18:17)
[2018-01-14] MEDS: LEVOTHYROXINE SODIUM 100 MCG/ VIAL IV SCH (09:11)
[2018-01-14] MEDS: RIFAXIMIN 550 MG TABLET PO SCH ×2 (09:11→22:21)
[2018-01-14 09:13] LABS: AMMONIA 45 uMol/L (<32)
[2018-01-14 09:19] LABS: PHOSPHORUS 2.2 mg/dL (2.5-4.9)
[2018-01-14 11:00] LABS: PLATELET ESTIMATE SLIGHTLY DECREASED
[2018-01-14 12:00] VITALS: BP 104/56
[2018-01-14] MEDS: ACETAMINOPHEN 650MG/20.3ML UDC NG PRN (13:46)
[2018-01-14] MEDS: LORAZEPAM 2MG/ML CPJ IV PRN (14:44)
[2018-01-14] MEDS ORDERED: POTASSIUM CHLORIDE 20MEQ/PACKET NG NR (15:15)
[2018-01-14 16:00] VITALS: BP 97/53
[2018-01-14 20:00] VITALS: BP 129/60
[2018-01-15] VITALS: BP 124/69
[2018-01-15] MEDS ORDERED: FUROSEMIDE 40MG/4ML VIAL IVP NR
[2018-01-15] MEDS: ACETAMINOPHEN 650MG/20.3ML UDC NG PRN ×3 (02:50→22:13)
[2018-01-15 04:00] VITALS: BP 98/59
[2018-01-15] MEDS: LORAZEPAM 2MG/ML CPJ IV PRN ×2 (05:25→20:50)
[2018-01-15] MEDS: SODIUM CHLORIDE 0.9% INJ 3ML FLUSH IVF SCH ×2 (06:40→22:17)
[2018-01-15 08:00] VITALS: BP 107/56
[2018-01-15] MEDS: LEVOTHYROXINE SODIUM 100 MCG/ VIAL IV SCH (10:07)
[2018-01-15] MEDS: FUROSEMIDE 40MG/4ML VIAL IVP SCH (10:07)
[2018-01-15] MEDS: RIFAXIMIN 550 MG TABLET PO SCH ×2 (10:07→22:14)
[2018-01-15] MEDS: LACTULOSE 20G/30ML UDC PO SCH ×2 (10:09→17:08)
[2018-01-15 10:36] LABS: AMMONIA 38 uMol/L (<32)
[2018-01-15 12:00] VITALS: BP 107/47
[2018-01-15] MEDS ORDERED: POTASSIUM CHLORIDE 20MEQ/PACKET PO SCH (12:45)
[2018-01-15 16:00] VITALS: BP 118/68
[2018-01-15 20:00] VITALS: BP 115/60
[2018-01-15] MEDS: DEXT 5%/0.45% NACL 1000ML 1,000 ML IV SCH ×2 (22:12→23:23)
[2018-01-16] VITALS: BP 114/65
[2018-01-16 04:00] VITALS: BP 100/57
[2018-01-16] MEDS: SODIUM CHLORIDE 0.9% INJ 3ML FLUSH IVF SCH ×3 (05:53→21:37)
[2018-01-16] MEDS: LORAZEPAM 2MG/ML CPJ IV PRN ×2 (06:35→13:30)
[2018-01-16 07:07] LABS: AMMONIA 50 uMol/L (<32)
[2018-01-16 07:12] LABS: BASOPHILS % 0.5 % (0.0-2.0); EOSINOPHILS % 0.4 % (0.0-5.0); HEMATOCRIT. 33.2 % (36.0-48.0); HEMOGLOBIN. 10.8 g/dL (12.0-16.0); MEAN CORPUSCULAR HEMOGLOBIN 33.1 pg (28.0-32.0); MEAN CORPUSCULAR VOLUME 101.6 fL (81.0-99.0); MONOCYTES % 5.1 % (2.0-8.0); PLATELET 91 x1000/uL (130-400); RED BLOOD CELL COUNT 3.27 mill/uL (4.2-5.4); RED CELL DISTRIBUTION WIDTH 23.9 % (11.6-14.6)
[2018-01-16 07:38] LABS: CHLORIDE 104 mEq/L (98-107)
[2018-01-16 08:00] VITALS: BP 107/63
[2018-01-16 08:04] LABS: PHOSPHORUS 2.2 mg/dL (2.5-4.9)
[2018-01-16] MEDS: FUROSEMIDE 40MG/4ML VIAL IVP SCH (08:58)
[2018-01-16] MEDS: LEVOTHYROXINE SODIUM 100 MCG/ VIAL IV SCH (08:58)
[2018-01-16] MEDS: LACTULOSE 20G/30ML UDC PO SCH ×2 (08:58→12:16)
[2018-01-16] MEDS: RIFAXIMIN 550 MG TABLET PO SCH ×2 (09:00→21:37)
[2018-01-16 12:00] VITALS: BP 120/60
[2018-01-16 16:00] VITALS: BP 113/67
[2018-01-16] MEDS ORDERED: SODIUM PHOS,M-BASIC-D-BASIC 15 MM in DEXT 5% WATER 245 ML IV NR (18:00)
[2018-01-16 20:00] VITALS: BP 117/60
[2018-01-16] MEDS: ACETAMINOPHEN 650MG/20.3ML UDC NG PRN (22:22)
[2018-01-17] VITALS: BP 104/71
[2018-01-17] MEDS: LORAZEPAM 2MG/ML CPJ IV PRN ×2 (02:19→22:01)
[2018-01-17 04:00] VITALS: BP 107/56
[2018-01-17] MEDS: SODIUM CHLORIDE 0.9% INJ 3ML FLUSH IVF SCH ×3 (06:14→20:43)
[2018-01-17] MEDS: DEXT 5%/0.45% NACL 1000ML 1,000 ML IV SCH (06:14)
[2018-01-17 06:36] LABS: INR 1.3; PARTIAL THROMBOPLASTIN TIME 48.3 sec (23.4-31.0); PROTHROMBIN TIME 13.3 sec (9.1-11.1)
[2018-01-17 07:01] LABS: AMMONIA 64 uMol/L (<32)
[2018-01-17 07:03] LABS: BASOPHILS % 0.2 % (0.0-2.0); EOSINOPHILS % 1.1 % (0.0-5.0); HEMATOCRIT. 32.8 % (36.0-48.0); HEMOGLOBIN. 10.9 g/dL (12.0-16.0); LYMPHOCYTES % 11.2 % (20.0-50.0); MEAN CORPUSCULAR HEMOGLOBIN 33.7 pg (28.0-32.0); MEAN CORPUSCULAR VOLUME 101.1 fL (81.0-99.0); MEAN PLATELET VOLUME 11.7 fl (7.4-10.4); MONOCYTES % 5.3 % (2.0-8.0); NEUTROPHILS % 82.2 % (40.0-76.0); PLATELET 97 x1000/uL (130-400); RED BLOOD CELL COUNT 3.25 mill/uL (4.2-5.4); RED CELL DISTRIBUTION WIDTH 23.1 % (11.6-14.6)
[2018-01-17 07:27] LABS: CHLORIDE 102 mEq/L (98-107)
[2018-01-17 07:34] LABS: PHOSPHORUS 3.4 mg/dL (2.5-4.9)
[2018-01-17 08:00] VITALS: BP 118/71
[2018-01-17] MEDS ORDERED: CEFAZOLIN 1000MG PREMIX 50 ML IV SCH (08:00)
[2018-01-17] MEDS: FUROSEMIDE 40MG/4ML VIAL IVP SCH (08:25)
[2018-01-17] MEDS: LEVOTHYROXINE SODIUM 100 MCG/ VIAL IV SCH (08:25)
[2018-01-17] MEDS: RIFAXIMIN 550 MG TABLET PO SCH ×2 (08:26→20:42)
[2018-01-17] MEDS: LACTULOSE 20G/30ML UDC PO SCH ×2 (09:00→13:00)
[2018-01-17] MEDS ORDERED: FENTANYL CITRATE/PF 50MCG/ML 2ML VIAL IV PRN (11:42)
[2018-01-17] MEDS ORDERED: MIDAZOLAM HCL 2 MG/2 ML VIAL IV PRN (11:44)
[2018-01-17] MEDS ORDERED: MIDAZOLAM HCL 5 MG/5 ML VIAL ONE (11:45)
[2018-01-17] MEDS ORDERED: FENTANYL CITRATE/PF 50MCG/ML 2ML VIAL ONE (11:45)
[2018-01-17] MEDS ORDERED: SODIUM CHLORIDE 0.9% 10ML VIAL ONE (12:43)
[2018-01-17 16:00] VITALS: BP 124/62
[2018-01-17 20:00] VITALS: BP 123/71
[2018-01-17] MEDS ORDERED: LISINOPRIL 2.5MG TABLET PO SCH (21:00)
[2018-01-17] MEDS ORDERED: POTASSIUM CHLORIDE 20MEQ/PACKET GT NR (21:00)
[2018-01-18] VITALS (7 sets, daily range): BP systolic 87–114; BP diastolic 40–70
[2018-01-18] MEDS: SODIUM CHLORIDE 0.9% INJ 3ML FLUSH IVF SCH (06:00)
[2018-01-18] MEDS ORDERED: NOREPINEPHRINE 32 MG in DEXT 5% WATER 468 ML IV PRN (06:30)
[2018-01-18] MEDS ORDERED: LEVOTHYROXINE SODIUM 137MCG TABLET GT SCH (06:45)
[2018-01-18 07:02] LABS: HEMATOCRIT 31.1 % (36.0-48.0); HEMOGLOBIN 9.8 g/dL (12.0-16.0); MEAN CORPUSCULAR HEMOGLOBIN 34.1 pg (28.0-32.0); MEAN CORPUSCULAR VOLUME 108.5 fL (81.0-99.0); RED BLOOD CELL COUNT 2.87 mill/uL (4.2-5.4); RED CELL DISTRIBUTION WIDTH 23.9 % (11.6-14.6)
[2018-01-18 07:07] LABS: AMMONIA 53 uMol/L (<32)
[2018-01-18 08:52] LABS: PLATELET 98 x1000/uL (130-400)
[2018-01-18] MEDS ORDERED: SODIUM BICARBONATE 7.5% 0.9 MEQ/ML 50ML SYR IV ONE ×2 (15:59→16:14)
[2018-01-18] MEDS ORDERED: EPINEPHRINE 0.1MG/ML (1:10,000) 10ML SYR ONE ×2 (15:59→16:14)
[2018-01-18] MEDS ORDERED: AMIODARONE HCL 50MG/ML 3ML VIAL IV ONE (15:59)
[2018-01-18] MEDS ORDERED: CALCIUM CHLORIDE 1GM/10ML SYR IV ONE (15:59)
[2018-01-19 19:10] LABS: ANTI-NUCLEAR ANTIBODIES DIRECT Negative (Negative)
[2018-01-21 13:06] LABS: ACTIN (SMOOTH MUSCLE) ANTIBODY 11 Units (0-19); MITOCHONDRIAL M2 AB 4.1 Units (0.0-20.0)
== END 2018-01-18 07:16 | disposition expired | DRG 682 ==
LOC: ER 13:09 → EDBEDREQ 15:00 → EDBEDREQTM 15:00 → EDBEDREQSVC 15:00 → 5WST 16:14 → EDBEDREQ 16:31 → EDBEDREQTM 16:31 → ENRESERV 19:25 → MICUNO 01-18 05:00 → 5WST 01-18 09:50
PROVIDERS: ADMIT Internal Medicine; ATTEND Internal Medicine
PROC: 0DH63UZ Insertion of Feeding Device into Stomach, Percutaneous Approach (ICD-10-PCS; 2018-01-17)
PROC: 0BH17EZ Insertion of Endotracheal Airway into Trachea, Via Natural or Artificial Opening (ICD-10-PCS; principal; 2018-01-18)
PROC: 0CJS8ZZ Inspection of Larynx, Via Natural or Artificial Opening Endoscopic (ICD-10-PCS; 2018-01-18)
PROC: 5A12012 Performance of Cardiac Output, Single, Manual (ICD-10-PCS; 2018-01-18)
PROC: 5A1935Z Respiratory Ventilation, Less than 24 Consecutive Hours (ICD-10-PCS; 2018-01-18)
DX: N17.9 Acute kidney failure, unspecified (principal); G92 Toxic encephalopathy; I50.23 Acute on chronic systolic (congestive) heart failure; E43 Unspecified severe protein-calorie malnutrition; D68.9 Coagulation defect, unspecified; E87.2 Acidosis; I13.0 Hypertensive heart and chronic kidney disease with heart failure and stage 1 through stage 4 chronic kidney disease, or unspecified chronic kidney disease; I42.9 Cardiomyopathy, unspecified; K62.5 Hemorrhage of anus and rectum; N39.0 Urinary tract infection, site not specified; D63.8 Anemia in other chronic diseases classified elsewhere; D75.89 Other specified diseases of blood and blood-forming organs; E87.6 Hypokalemia; I27.20 Pulmonary hypertension, unspecified; L89.150 Pressure ulcer of sacral region, unstageable; I46.9 Cardiac arrest, cause unspecified; E78.5 Hyperlipidemia, unspecified; N18.3 Chronic kidney disease, stage 3 (moderate); D53.9 Nutritional anemia, unspecified; D69.6 Thrombocytopenia, unspecified; E88.09 Other disorders of plasma-protein metabolism, not elsewhere classified; E03.9 Hypothyroidism, unspecified; E78.00 Pure hypercholesterolemia, unspecified; E83.39 Other disorders of phosphorus metabolism; F03.90 Unspecified dementia, unspecified severity, without behavioral disturbance, psychotic disturbance, mood disturbance, and anxiety; I25.10 Atherosclerotic heart disease of native coronary artery without angina pectoris; I45.4 Nonspecific intraventricular block; I48.0 Paroxysmal atrial fibrillation; K72.90 Hepatic failure, unspecified without coma; K74.60 Unspecified cirrhosis of liver; L30.9 Dermatitis, unspecified; R13.10 Dysphagia, unspecified; Z78.1 Physical restraint status; Z86.011 Personal history of benign neoplasm of the brain; Z79.01 Long term (current) use of anticoagulants; Z87.891 Personal history of nicotine dependence; Z90.49 Acquired absence of other specified parts of digestive tract; Z90.710 Acquired absence of both cervix and uterus; Z95.1 Presence of aortocoronary bypass graft; Z95.810 Presence of automatic (implantable) cardiac defibrillator; Z79.899 Other long term (current) drug therapy; Z86.73 Personal history of transient ischemic attack (TIA), and cerebral infarction without residual deficits
CPT/HCPCS: 31500; 36415; 36600; 71045; 76705; 80048; 80076; 80202; 82140; 82248; 82375; 82390; 82607; 82746; 82805; 82962; 83516; 83605; 83735; 83880; 84100; 84132; 84134; 84145; 84439; 84443; 84484; 85027; 86038; 86705; 86709; 86803; 87340; 92950; 93005; 93971; 99291; A4216; C1893; J0282; J0690; J1940; J1956; J2060; J2250; J3010; J3370; J3430; J3480; J3490; J7030; J7060; A4315